=== PATIENT | female | born 1995 | race Caucasian/White ===

== ENCOUNTER → 2016-11-26 | Outpatient (CLI) | payer BC | END | disposition home or self-care (01) | LOC: C.PAPS 13:40 | PROVIDERS: ATTEND Physician Assistant | DX: Z01.419 Encounter for gynecological examination (general) (routine) without abnormal findings (principal); R87.612 Low grade squamous intraepithelial lesion on cytologic smear of cervix (LGSIL) ==

== ENCOUNTER → 2016-11-26 | Outpatient (CLI) | payer BC ==
[2016-11-29 01:28] LABS: CHLAMYDIA TRACH RNA*** NOT DETECTED (NOT DETECTED); GC (NEIS GONORRHOEAE)RNA** NOT DETECTED (NOT DETECTED)
== END | disposition home or self-care (01) ==
LOC: C.LABSPEC 13:28
PROVIDERS: ATTEND Physician Assistant
DX: Z11.3 Encounter for screening for infections with a predominantly sexual mode of transmission (principal)

== ENCOUNTER 2017-09-27 20:47 | Emergency (ER) | payer BC ==
[~2017-09-27] VITALS: Ht 147.3 cm; Wt 52.1 kg
[2017-09-27 20:49] VITALS: TEMP 36.7; Ht 147.3 cm; Wt 52.1 kg
--- NOTE | 2017-09-27 21:11 | EMERGENCY ROOM VISIT NOTE ---
History First contact with patient: 20:53 Chief Complaint: ABDOMINAL PAIN Stated Complaint: PAIN FOR OVER 24 HOURS, UPPER ABD/RT SIDE BACK Nursing Triage Summary: pt c/o abd pain started yesterday and now radiating into right flank, sent in from urgent care History of Present Illness The patient is a 22 year old female who presents to the Emergency Room with complaints of abdominal pain that started yesterday morning. It is in the epigastric region. She describes it as intermittent, sharp and stabbing. She denies any nausea. When the patient woke up this morning, the pain had moved to her right side and radiated to her back. It is now constant and dull, occasionally getting sharp. She denies any changes in bowel movements. The patient does report a low-grade fever of 99 . her last bowel movement was earlier today and reportedly normal. She denies any fever or chills. No sick contacts. She denies any urinary symptoms. Review of Systems 10 system review performed and negative unless noted in HPI or below Past Medical/Surgical History Otherwise healthy Social History Smoking Status: Never Smoker Occupation Status: employed Current/Historical Medications Scheduled Pantoprazole (Protonix), 40 MG PO BID Physical Exam Vital Signs Date Time Temp Pulse Resp B/P (MAP) Pulse Ox O2 Delivery O2 Flow Rate FiO2 09/27/17 23:47 70 14 107/69 98 09/27/17 22:36 69 14 107/71 98 Room Air 09/27/17 20:49 36.7 101 18 136/86 97 Room Air Physical Exam VITALS: Vitals are noted on the nurse's note and reviewed by myself. Vital signs stable. GENERAL: 22-year-old female, in no acute distress, nondiaphoretic, well- developed well-nourished. SKIN: The skin was without rashes, erythema, edema, or bruising. HEAD: Normocephalic atraumatic. MOUTH: Mucous membranes moist. NECK: Supple without nuchal rigidity. No lymphadenopathy. Cervical spine is nontender. No JVD. HEART: Regular rate and rhythm without murmurs gallops or rubs. LUNGS: Clear to auscultation bilaterally without wheezes, rales or rhonchi. No accessory muscle use. ABDOMEN: Positive bowel sounds x 4.Soft, mild tenderness to palpation in the epigastric region, without organomegaly. No guarding or rebound tenderness. MUSCULOSKELETAL: No muscle atrophy, erythema, or edema noted. Strength 5/5 throughout. NEURO: Patient was alert and oriented to person place and time. Normal sensation to touch. No focal neurological deficits. Medical Decision & Procedures ER Provider Diagnostic Interpretation: US RUQ IMPRESSION: 1. Nondiagnostic evaluation the pancreas 2. Ultrasonographically normal gallbladder. No evidence of ductal dilatation 3. There is a starry jordon appearance of the liver. This is a very nonspecific finding which has been reported in fasting, hepatitis, lymphoma, leukemia, as well as a normal variation. Correlation with liver function tests is recommended. Electronically signed by: Kenneth Del Cid M.D. 09/27/2017 10:05 PM Laboratory Results 09/27/17 21:05 Red Blood Count 4.43, Mean Corpuscular Volume 87.1, Mean Corpuscular Hemoglobin 29.8, Mean Corpuscular Hemoglobin Concent 34.2, Mean Platelet Volume 10.0, Neutrophils (%) (Auto) 53.4, Lymphocytes (%) (Auto) 34.0, Monocytes (%) (Auto) 9.1, Eosinophils (%) (Auto) 2.6, Basophils (%) (Auto) 0.7, Neutrophils # (Auto) 2.89, Lymphocytes # (Auto) 1.84, Monocytes # (Auto) 0.49, Eosinophils # (Auto) 0.14, Basophils # (Auto) 0.04 09/27/17 21:05 Test 09/27/17 21:05 09/27/17 21:30 White Blood Count 5.41 K/uL (4.8-10.8) Red Blood Count 4.43 M/uL (4.2-5.4) Hemoglobin 13.2 g/dL (12.0-16.0) Hematocrit 38.6 % (37-47) Mean Corpuscular Volume 87.1 fL (80-100) Mean Corpuscular Hemoglobin 29.8 pg (25-34) Mean Corpuscular Hemoglobin Concent 34.2 g/dl (32-36) Platelet Count 252 K/uL (130-400) Mean Platelet Volume 10.0 fL (7.4-10.4) Neutrophils (%) (Auto) 53.4 % Lymphocytes (%) (Auto) 34.0 % Monocytes (%) (Auto) 9.1 % Eosinophils (%) (Auto) 2.6 % Basophils (%) (Auto) 0.7 % Neutrophils # (Auto) 2.89 K/uL (1.4-6.5) Lymphocytes # (Auto) 1.84 K/uL (1.2-3.4) Monocytes # (Auto) 0.49 K/uL (0.11-0.59) Eosinophils # (Auto) 0.14 K/uL (0-0.5) Basophils # (Auto) 0.04 K/uL (0-0.2) RDW Standard Deviation 40.9 fL (36.4-46.3) RDW Coefficient of Variation 12.7 % (11.5-14.5) Immature Granulocyte % (Auto) 0.2 % Immature Granulocyte # (Auto) 0.01 K/uL (0.00-0.02) Anion Gap 6.0 mmol/L (3-11) Est Creatinine Clear Calc Drug Dose 90.0 ml/min Estimated GFR () 141.2 Estimated GFR (Non- 121.8 BUN/Creatinine Ratio 24.6 (10-20) Calcium Level 8.6 mg/dl (8.5-10.1) Total Bilirubin 0.4 mg/dl (0.2-1) Aspartate Amino Transf (AST/SGOT) 11 U/L (15-37) Alanine Aminotransferase (ALT/SGPT) 14 U/L (12-78) Alkaline Phosphatase 50 U/L (45-117) Total Protein 7.5 gm/dl (6.4-8.2) Albumin 4.2 gm/dl (3.4-5.0) Globulin 3.3 gm/dl (2.5-4.0) Albumin/Globulin Ratio 1.3 (0.9-2) Lipase 136 U/L (73-393) Urine Color YELLOW Urine Appearance CLOUDY (CLEAR) Urine pH 6.5 (4.5-7.5) Urine Specific [place] 1.024 (1.000-1.030) Urine Protein NEG (NEG) Urine Glucose (UA) NEG (NEG) Urine Ketones TRACE (NEG) Urine Occult Blood TRACE (NEG) Urine Nitrite NEG (NEG) Urine Bilirubin NEG (NEG) Urine Urobilinogen NEG (NEG) Urine Leukocyte Esterase TRACE (NEG) Urine WBC (Auto) 1-5 /hpf (0-5) Urine RBC (Auto) 0-4 /hpf (0-4) Urine Hyaline Casts (Auto) 1-5 /lpf (0-5) Urine Epithelial Cells (Auto) >30 /lpf (0-5) Urine Bacteria (Auto) NEG (NEG) Urine Crystals CALCIUM OXALATE (NONE Urine Test NEG (NEG) ED Course Patient was seen and examined Vital signs including blood pressure were reviewed medications list was verified with patient Labs were obtained, and a saline lock was established The patient declined pain and nausea medication Imaging was performed and reviewed. The patient was reassessed, and resting comfortably. We thoroughly reviewed her workup. She voiced understanding. She was comfortable being discharged home. I reviewed discharge instructions the patient. They voiced understanding and had no further questions. Medical Decision DIFFERENTIAL DIAGNOSIS: Ureteral stone, pulmonary embolus gastroenteritis, Hepatitis, cholecystitis, cholangitis, biliary colic, pancreatitis, appendicitis, inguinal hernia, nephrolithiasis, inflammatory bowel disease, mesenteric adenitis, peptic ulcer disease, GERD, gastritis, pancreatitis,, bowel obstruction, splenic infarct, This patient is a 22 year old female presents to the emergency department with epigastric abdominal pain now radiating to the right side of her abdomen and around to her back. On exam, she has some mild tenderness in the epigastric region. She was also complaining of fever. The patient was seen first at [facility] and sent here for evaluation. She denies any chest pain or difficulty breathing. No hypoxia. I did not suspect pulmonary embolus. My first thought was possibly gallbladder pathology, pancreatitis or a ureteral stone. I ordered an ultrasound, which did not show any abnormalities of the gallbladder. LFTs are within normal limits. Lipase is also normal. I ordered a CT for possible ureteral stone. No abnormalities were noted. The etiology of her pain is unclear. I believe she is stable to be discharged home with close follow-up. She was comfortable with this plan. She agrees to return with any worsening symptoms This chart was completed in part utilizing [employer] Speech Voice Recognition software. Attempts were made to minimize the grammatical errors, random word insertions, pronoun errors and incomplete sentences. Any formal questions or concerns about the content, text or information contained within the body of this dictation should be directly addressed to the provider for clarification. Impression Primary Impression: Abdominal pain Departure Information Dispostion Home / Self-Care Condition GOOD Prescriptions Pantoprazole (PROTONIX) 40 Mg Tab 40 MG PO BID for 14 Days, #28 TAB Prov: Elmira Donahue PA-C 09/27/17 Referrals No Doctor, Assigned (PCP) Patient Instructions [facility] Additional Instructions You have been evaluated in the emergency department for abdominal pain. A CAT scan and ultrasound did not show any significant abnormalities. Please take pantoprazole 1 tab twice daily for 2 weeks. Please try following a bland diet. Avoid spicy food, acidic food, alcohol and tobacco. Please follow-up with your primary care physician next week to be rechecked If the pain persists, you may need further testing Please do not hesitate to return to the emergency department with any new, worsening or concerning symptoms It was a pleasure participating in your care this evening Work Instructions Return To Work: 2 days
[2017-09-27 21:47] LABS: BASO % 0.7 %; BASO ABS # 0.04 K/uL (0-0.2); EOS % 2.6 %; EOS ABS # 0.14 K/uL (0-0.5); HEMATOCRIT 38.6 % (37-47); HEMOGLOBIN 13.2 g/dL (12.0-16.0); IG# 0.01 K/uL (0.00-0.02); LYMPH ABS # 1.84 K/uL (1.2-3.4); MEAN CELL VOLUME 87.1 fL (80-100); MEAN CORPUSCULAR HEMOGLOBIN 29.8 pg (25-34); MEAN CORPUSCULAR HGB CONC 34.2 g/dl (32-36); MONO % 9.1 %; MONO ABS # 0.49 K/uL (0.11-0.59); NEUT % 53.4 %; NEUT ABS # 2.89 K/uL (1.4-6.5); PLATELET COUNT 252 K/uL (130-400); RED CELL DISTRIBUTION WIDTH CV 12.7 % (11.5-14.5); RED CELL DISTRIBUTION WIDTH SD 40.9 fL (36.4-46.3); WHITE BLOOD COUNT 5.41 K/uL (4.8-10.8)
[2017-09-27 21:50] LABS: ALBUMIN 4.2 gm/dl (3.4-5.0); CALCIUM 8.6 mg/dl (8.5-10.1); CREATININE 0.69 mg/dl (0.60-1.20); POTASSIUM 3.3 mmol/L (3.5-5.1)
[2017-09-27 21:53] LABS: TOTAL PROTEIN 7.5 gm/dl (6.4-8.2)
--- NOTE | 2017-09-27 22:06 | DIAGNOSTIC IMAGING REPORT ---
BILIARY ULTRASOUND CLINICAL HISTORY: Right upper quadrant and epigastric pain COMPARISON STUDY: No previous studies for comparison. FINDINGS: The pancreas was nonvisualized. No focal hepatic masses are visualized. There are bright portal triads.. The gallbladder is sonographically normal. There is no ductal dilatation. The common bile duct measures 3 mm. There is no right-sided hydronephrosis. IMPRESSION: 1. Nondiagnostic evaluation the pancreas 2. Ultrasonographically normal gallbladder. No evidence of ductal dilatation 3. There is a starry jordon appearance of the liver. This is a very nonspecific finding which has been reported in fasting, hepatitis, lymphoma, leukemia, as well as a normal variation. Correlation with liver function tests is recommended. Electronically signed by: Kenneth Del Cid M.D. 09/27/2017 10:05 PM Dictated Date/Time: 09/27/2017 10:00 PM
[2017-09-27] MEDS ORDERED: OPTIRAY 320 IV PRN (23:30)
[2017-09-27] MEDS ORDERED: PANTOprazole SOD 40 MG TAB PO STA (23:44)
[2017-09-27] MEDS ORDERED: PANT1TAB3 PO (23:45)
[2017-09-27 23:47] VITALS: BP 107/69; PULSE 70; O2SAT 98
--- NOTE | 2017-09-28 05:26 | DIAGNOSTIC IMAGING REPORT ---
ABD/PELVIS IV CONTRAST ONLY CLINICAL HISTORY: 22 years-old Female presenting with epigastric RUQ pain fever. TECHNIQUE: Multidetector CT of the abdomen and pelvis was performed after the administration of intravenous contrast. IV contrast: 92 mL of Optiray 320. A dose lowering technique was used consistent with the principles of ALARA (as low as reasonably achievable). COMPARISON: None. CT DOSE (mGy.cm): The estimated cumulative dose is 246.59 mGy.cm. FINDINGS: [employer] Aide topogram: Unremarkable. Lung bases: Lungs and pleural spaces clear. Normal heart size. No pericardial or pleural effusion. Liver: Normal morphology. Few subcentimeter well-defined hypodensities at the hepatic dome, indeterminate but likely hepatic cysts or hamartomas. No suspicious hepatic lesion. Patent hepatic vasculature. Biliary: Minimal intrahepatic biliary ductal prominence. No extrahepatic biliary ductal dilatation. Normal gallbladder. Pancreas: Normal. Spleen: Normal. Adrenal glands: Normal. Kidneys and ureters: Well-defined hypodensity at the upper pole the right kidney likely simple cyst. Otherwise normal renal parenchyma. No nephrolithiasis. No hydronephrosis. Ureters grossly normal allowing for limited intra-abdominal fat, which makes her assessment more difficult. Bladder: Mild circumferential bladder wall thickening may be present. Pelvic organs: Uterus and ovaries normal. A tampon is noted in the vagina. Bowel: Normal appendix. No bowel obstruction. Peritoneal cavity: Trace free fluid in the pelvis. No free intra-abdominal gas. Lymph nodes: No enlarged lymph nodes in the abdomen or pelvis. Vasculature: Aorta and IVC patent and normal in caliber. Abdominal wall: Normal. Musculoskeletal: Normal. IMPRESSION: 1. No convincing evidence of acute intra-abdominal pathology. 2. Mild circumferential bladder wall thickening may be due to underdistention or indicate cystitis. Correlate with urinalysis. Electronically signed by: Mirza Robb M.D. 09/28/2017 5:25 AM Dictated Date/Time: 09/28/2017 5:20 AM
== END 2017-09-27 23:55 | disposition home or self-care (01) ==
LOC: C.EDB 20:48
DX: R10.13 Epigastric pain (principal)